=== PATIENT | female | born 1995 | race American Indian/Alaskan Native ===

== ENCOUNTER 2021-05-09 05:46 | Emergency (ER) | payer BC ==
--- NOTE | 2021-05-09 09:48 | Emergency Department Report ---
ED Female HPI - General Chief complaint: Abdominal Pain Stated complaint: ABD PAIN/BLEEDING Time Seen by Provider: 05/09/21 09:06 Source: patient Mode of arrival: Ambulatory Limitations: No Limitations - History of Present Illness Initial comments: 26-year-old female with no significant past history presents to the ER today with complaints of abnormal vaginal bleeding and low abdominal pain. Patient states that she started with a sharp intermittent low abdominal pain 5 days ago. Then 4 days ago she started with vaginal spotting. She states that the spotting increased on Thursday and it turned into heavier bleeding on Thursday. She states that she did have to change up to 3 pads on Thursday. She states that the bleeding has since slowed down since yesterday including today. She also reports that her abdominal pain has improved since it started. Patient states that she has PCOS and therefore has not had a menstrual cycle since 2018. She is not currently on any control. She states that she did not take a home test. She reports no other symptoms at this time. MD Complaint: vaginal bleeding -: days(s) (5) - Related Data Previous Rx's Medication Instructions Recorded Last Taken Type Sulfamethoxazole/Trimethoprim 1 each PO BID #10 tablet 05/09/21 Unknown Rx [Bactrim DS TAB] Allergies Allergy/AdvReac Type Severity Reaction Status Date / Time No Known Allergies Allergy Unverified 05/09/21 07:44 ED Review of Systems ROS: Stated complaint: ABD PAIN/BLEEDING Other details as noted in HPI Comment: All other systems reviewed and negative Constitutional: denies: chills, diaphoresis, fever, malaise, weakness Eyes: denies: eye pain, eye discharge, vision change ENT: denies: ear pain, throat pain, dental pain, hearing loss, epistaxis, congestion Respiratory: denies: cough, shortness of breath, SOB with exertion, SOB at rest, wheezing Cardiovascular: denies: chest pain, palpitations, dyspnea on exertion, edema, syncope, paroxysmal nocturnal dyspnea Endocrine: no symptoms reported Gastrointestinal: abdominal pain. denies: nausea, vomiting, diarrhea, constipation, hematemesis, melena, hematochezia Genitourinary: abnormal menses. denies: urgency, dysuria, frequency, hematuria, discharge Musculoskeletal: denies: back pain, joint swelling, arthralgia Skin: denies: rash, lesions, change in color, change in hair/nails, pruritus Neurological: denies: headache, weakness, numbness, paresthesias, confusion, abnormal gait, vertigo Psychiatric: denies: anxiety, depression, auditory hallucinations, visual hallucinations, homicidal thoughts, suicidal thoughts Hematological/Lymphatic: denies: easy bleeding, easy bruising, swollen glands ED Past Medical Hx - Past Medical History Previous Medical History?: Yes Additional medical history: PCOS - Surgical History Past Surgical History?: No - Medications Home Medications: Home Medications Medication Instructions Recorded Confirmed Last Taken Type Sulfamethoxazole/Trimethoprim 1 each PO BID #10 tablet 05/09/21 Unknown Rx [Bactrim DS TAB] ED Physical Exam - General Limitations: No Limitations General appearance: alert, in no apparent distress - Head Head exam: Present: atraumatic, normocephalic, normal inspection - Eye Eye exam: Present: normal appearance, PERRL, EOMI Pupils: Present: normal accommodation - ENT ENT exam: Present: normal exam, mucous membranes moist - Neck Neck exam: Present: normal inspection, full ROM - Respiratory Respiratory exam: Present: normal lung sounds bilaterally. Absent: respiratory distress - Cardiovascular Cardiovascular Exam: Present: regular rate, normal rhythm, normal heart sounds - GI/Abdominal GI/Abdominal exam: Present: soft. Absent: distended, tenderness, guarding - Neurological Exam Neurological exam: Present: alert, oriented X3, CN II-XII intact, normal gait - Psychiatric Psychiatric exam: Present: normal affect, normal mood - Skin Skin exam: Present: intact ED Course Vital Signs 05/09/21 05/09/21 07:46 10:03 Temperature 98.8 F 98.4 F Pulse Rate 77 67 Respiratory 16 15 Rate Blood Pressure 156/98 125/80 O2 Sat by Pulse 100 100 Oximetry ED Medical Decision Making - Medical Decision Making 26-year-old female with no significant past history presents to the ER today with complaints of abnormal vaginal bleeding and low abdominal pain. Patient states that she started with a sharp intermittent low abdominal pain 5 days ago. Then 4 days ago she started with vaginal spotting. She states that the spotting increased on Thursday and it turned into heavier bleeding on Thursday. She states that she did have to change up to 3 pads on Thursday. She states that the bleeding has since slowed down since yesterday including today. She also reports that her abdominal pain has improved since it started. Patient states that she has PCOS and therefore has not had a menstrual cycle since 2019. She is not currently on any control. She states that she did not take a home test. She reports no other symptoms at this time. Urinalysis is concerning for possible UTI. Culture is pending. hCG negative. Patient is nontoxic, not ill-appearing and currently not in any acute distress. She has been observed sitting up on the side of the bed and engaging in her phone. She has a nonsurgical abdominal exam. Her vital signs are stable. At this time there is no indication for any additional work-up, specialist consult or admission. Discussed lab results with patient. Discussed treatment plan for her UTI. Recommend that she follows up closely with her [employer]. Patient expressed understanding of instructions and agree with plan. Patient was stable at time of discharge. Critical care attestation.: If time is entered above; I have spent that time in minutes in the direct care of this critically ill patient, excluding procedure time. ED Disposition Clinical Impression: Abnormal uterine bleeding, UTI (urinary tract infection) Disposition: TO HOME OR SELFCARE Is pt being admited?: No Does the pt Need Aspirin: No Condition: Stable Instructions: Urinary Tract Infection, Adult, [id number], Abnormal Uterine Bleeding, [id number], Abdominal Pain (ED) Additional Instructions: Take the antibiotics as prescribed. You can take motrin or tylenol as needed for pain. I recommend she follow-up with your [employer] next week. Return to the ER if your symptoms changes or worsens in any way. Prescriptions: Sulfamethoxazole/Trimethoprim [Bactrim DS TAB] 1 each PO BID #10 tablet Referrals: PRIMARY CARE [Primary Care Provider] - 3-5 Days Time of Disposition: 11:09
[2021-05-09 10:10] VITALS: BP 125/80
[2021-05-09 10:34] LABS: Bilirubin,Urine NEG (Negative); Blood,Urine LG (Negative); Calcium Oxalate Crystals,Urine FEW; Color,Urine Amber (Yellow); Mucus,Urine 3+ /HPF
[2021-05-09 10:35] LABS: HCG Qualitative,Urine Negative (Negative)
== END 2021-05-09 11:16 | disposition home or self-care (01) ==
LOC: ED 05:46
DX: N93.9 Abnormal uterine and vaginal bleeding, unspecified (principal); N39.0 Urinary tract infection, site not specified; Z79.899 Other long term (current) drug therapy
CPT/HCPCS: 81001; 81025; 87086; 99283

== ENCOUNTER 2021-11-22 10:07 | Emergency (ER) | payer BC ==
[2021-11-22] MEDS ORDERED: ACETAMINOPHEN 500 MG TAB PO ONE (10:32)
[2021-11-22] MEDS ORDERED: ONDANSETRON 4 MG ODT TAB PO ONE (10:32)
--- NOTE | 2021-11-22 10:35 | Emergency Department Report ---
ED Abdominal Pain HPI - General Stated Complaint: ABD PAIN PUI?: Yes Time Seen by Provider: 11/22/21 10:28 Source: patient Mode of arrival: Ambulatory Limitations: No Limitations - History of Present Illness Initial Comments: 26-year-old female who denies any significant past medical history presents to the ER today with complaints of left flank pain. She states that the pain started abruptly this morning. She states that it radiates into her left lower quadrant area. She states that its been constant in nature. She states that currently her pain is 8 out of 10. She states that she did vomit once this morning. She denies any diarrhea. Last bowel movement was this morning and normal. She denies any UTI symptoms or any abnormal vaginal symptoms. Last menstrual cycle was about 2 weeks ago and normal. She is not currently on any control. She denies any known ill contacts, bad food intake or recent travel. She denies any history of abdominal surgeries. MD Complaint: abdominal pain, flank pain -: Sudden, This morning Location: LLQ, L flank Radiation: LLQ - Related Data LMP (females 10-50): other (about 2 weeks ago) Previous Rx's Medication Instructions Recorded Last Taken Type Sulfamethoxazole/Trimethoprim 1 each PO BID #10 tablet 05/09/21 Unknown Rx [Bactrim DS TAB] Ketorolac [Toradol] 10 mg PO Q6H PRN #20 11/22/21 Unknown Rx Ondansetron [Zofran Odt] 4 mg PO Q8HR #15 tab.rapdis 11/22/21 Unknown Rx Allergies Allergy/AdvReac Type Severity Reaction Status Date / Time No Known Allergies Allergy Unverified 05/09/21 07:44 ED Review of Systems ROS: Stated complaint: ABD PAIN Other details as noted in HPI Comment: All other systems reviewed and negative Constitutional: denies: chills, fever Eyes: denies: eye pain, eye discharge, vision change ENT: denies: ear pain, throat pain Respiratory: denies: cough, shortness of breath, SOB with exertion, SOB at rest, wheezing Cardiovascular: denies: chest pain, palpitations, dyspnea on exertion, edema, syncope, paroxysmal nocturnal dyspnea Gastrointestinal: abdominal pain, nausea, vomiting. denies: diarrhea, constipation, hematemesis, hematochezia Genitourinary: denies: urgency, dysuria, frequency, hematuria, discharge, abnormal menses, dyspareunia Musculoskeletal: denies: back pain, joint swelling, arthralgia, myalgia Skin: denies: rash, lesions, change in color, change in hair/nails, pruritus Neurological: denies: headache, weakness, numbness, paresthesias, confusion, abnormal gait, vertigo Psychiatric: as per HPI. denies: auditory hallucinations, visual hallucinations, homicidal thoughts, suicidal thoughts Hematological/Lymphatic: denies: easy bleeding, easy bruising ED Past Medical Hx - Past Medical History Additional medical history: PCOS - Medications Home Medications: Home Medications Medication Instructions Recorded Confirmed Last Taken Type Sulfamethoxazole/Trimethoprim 1 each PO BID #10 tablet 05/09/21 Unknown Rx [Bactrim DS TAB] Ketorolac [Toradol] 10 mg PO Q6H PRN #20 11/22/21 Unknown Rx Ondansetron [Zofran Odt] 4 mg PO Q8HR #15 tab.rapdis 11/22/21 Unknown Rx ED Course Vital Signs 11/22/21 10:34 Temperature 98.3 F Pulse Rate 74 Respiratory 18 Rate Blood Pressure 148/83 O2 Sat by Pulse 94 Oximetry ED Medical Decision Making - Lab Data Result diagrams: 11/22/21 10:52 11/22/21 10:52 - Radiology Data Patient: CAROL BENEDICT MR#: [id number] : 1995 Acct:[id number] Age/Sex: 26 / F ADM Date: 11/22/21 Loc: ED Attending Dr: Ordering Physician: JORDAN THEODORE Date of Service: 11/22/21 Procedure(s): CT abdomen pelvis wo con Accession Number(s): [id number] cc: JORDAN THEODORE CT ABDOMEN AND PELVIS WITHOUT CONTRAST INDICATION / CLINICAL INFORMATION: Right flank pain. TECHNIQUE: Axial CT images were obtained through the abdomen and pelvis without IV contrast. Sagittal and coronal reformatted images. All CT scans at this location are performed using CT dose reduction for ALARA by means of automated exposure control. COMPARISON: None available. FINDINGS: LOWER CHEST: No significant abnormality. LIVER: No significant abnormality. GALLBLADDER: No significant abnormality. BILE DUCTS: No significant abnormality. PANCREAS: No significant abnormality. SPLEEN: No significant abnormality. ADRENALS: No significant abnormality. RIGHT KIDNEY and URETER: There are a few calyceal stones in the right kidney with the largest measuring 4 mm near the superior pole. No ureteral stones or hydronephrosis is appreciated LEFT KIDNEY and URETER: No significant abnormality. STOMACH and SMALL BOWEL: No significant abnormality. COLON: No significant abnormality. APPENDIX: No significant abnormality. PERITONEUM: No free fluid. No free air. No fluid collection. LYMPH NODES: No significant adenopathy. AORTA and ARTERIES: No significant abnormality. IVC and VEINS: No significant abnormality. URINARY BLADDER: No significant abnormality. REPRODUCTIVE ORGANS: No significant abnormality. ADDITIONAL FINDINGS: None. SKELETAL SYSTEM: No significant abnormality. IMPRESSION: Nonobstructing right nephrolithiasis as described. Signer Name: Santi Montelongo Jr, MD Signed: 11/22/2021 12:49 PM Workstation Name: [id number] Transcribed By: DES Dictated By: SANTI MONTELONGO JR, MD Electronically Authenticated By: SANTI MONTELONGO JR, MD Signed Date/Time: 11/22/21 1249 DD/ 1247 TD/TT: - Medical Decision Making 1259: CT abdomen pelvis shows nothing acute. Labs reviewed and unremarkable. hCG is negative. Patient currently resting comfortably on the recliner. She is not in any acute distress. She is not toxic or ill-appearing. Her vital signs are stable. She is neurologically intact. Discussed findings with patient. Exact cause of her symptoms at this time unclear, could be viral, but at this time there is no significant abnormalities noted on work-up today requiring surgical intervention or admission. Patient will be given medication to help her symptoms. Recommend close follow-up with her primary care doctor. Patient expressed understanding of all instructions and agree with plan. Patient was stable at time of discharge. Critical care attestation.: If time is entered above; I have spent that time in minutes in the direct care of this critically ill patient, excluding procedure time. ED Disposition Clinical Impression: Left sided abdominal pain, Left flank pain Disposition: HOME / SELF CARE / HOMELESS Is pt being admited?: No Does the pt Need Aspirin: No Condition: Stable Instructions: Abdominal Pain, Adult, [id number], Flank Pain, Adult Additional Instructions: Recommend that you take the Zofran as prescribed to help if your nausea and vomiting continues. Take the Toradol to help with pain as needed. Follow-up with your primary care doctor next week. Return to the ER if your symptoms worsens in any way. Prescriptions: Ketorolac [Toradol] 10 mg PO Q6H PRN #20 PRN Reason: Pain Ondansetron [Zofran Odt] 4 mg PO Q8HR #15 tab.rapdis Referrals: PRIMARY CARE, [Primary Care Provider] - 3-5 Days Forms: Work/School Release Form(ED) Time of Disposition: 13:01
[2021-11-22 11:12] LABS: Basophils % (Auto) 0.4 % (0.0-1.8); Eosinophils # (Auto) 0.1 K/mm3 (0.0-0.4); Hematocrit 40.5 % (30.3-42.9); Hemoglobin 13.1 gm/dl (10.1-14.3); Lymphocytes # (Auto) 1.5 K/mm3 (1.2-5.4); Lymphocytes % (Auto) 17.1 % (13.4-35.0); Mean Corpuscular HGB Conc 32 % (30-34); Mean Corpuscular Volume 86 fl (79-97); Monocytes # (Auto) 0.5 K/mm3 (0.0-0.8); Monocytes % (Auto) 5.8 % (0.0-7.3); Platelet Count 312 K/mm3 (140-440); Red Blood Count 4.71 M/mm3 (3.65-5.03); Red Cell Distribution Width 14.9 % (13.2-15.2)
[2021-11-22 11:34] LABS: Alanine Aminotransferase 17 units/L (7-56); Albumin 4.1 g/dL (3.9-5); BUN/Creatinine Ratio 8; Blood Urea Nitrogen 6 mg/dL (7-17); Calcium 9.5 mg/dL (8.4-10.2); Hemolysis Index 4
[2021-11-22 11:37] LABS: Bilirubin,Urine NEG (Negative); Blood,Urine LG (Negative); Color,Urine Yellow (Yellow); Mucus,Urine 2+ /HPF; Urobilinogen,Urine < 2.0 mg/dL (<2.0)
[2021-11-22 11:44] LABS: RBC,Urine > 182.0 /HPF (0.0-6.0)
--- NOTE | 2021-11-22 12:54 | Cat Scan Report ---
CT ABDOMEN AND PELVIS WITHOUT CONTRAST INDICATION / CLINICAL INFORMATION: Right flank pain. TECHNIQUE: Axial CT images were obtained through the abdomen and pelvis without IV contrast. Sagittal and stark l reformatted images. All CT scans at this location are performed using CT dose reduction for ALARA b y means of automated exposure control. COMPARISON: None available. FINDINGS: LOWER CHEST: No significant abnormality. LIVER: No significant abnormality. GALLBLADDER: No significant abnormality. BILE DUCTS: No significant abnormality. PANCREAS: No significant abnormality. SPLEEN: No significant abnormality. ADRENALS: No significant abnormality. RIGHT KIDNEY and URETER: There are a few calyceal stones in the right kidney with the largest measuri ng 4 mm near the superior pole. No ureteral stones or hydronephrosis is appreciated LEFT KIDNEY and URETER: No significant abnormality. STOMACH and SMALL BOWEL: No significant abnormality. COLON: No significant abnormality. APPENDIX: No significant abnormality. PERITONEUM: No free fluid. No free air. No fluid collection. LYMPH NODES: No significant adenopathy. AORTA and ARTERIES: No significant abnormality. IVC and VEINS: No significant abnormality. URINARY BLADDER: No significant abnormality. REPRODUCTIVE ORGANS: No significant abnormality. ADDITIONAL FINDINGS: None. SKELETAL SYSTEM: No significant abnormality. IMPRESSION: Nonobstructing right nephrolithiasis as described. Signer Name: Santi White Jr, MD Signed: 11/22/2021 12:49 PM Workstation Name: [id number]
[2021-11-22 13:20] VITALS: BP 114/66
== END 2021-11-22 13:20 | disposition home or self-care (01) ==
LOC: ED 10:07
DX: R10.32 Left lower quadrant pain (principal); R10.9 Unspecified abdominal pain
CPT/HCPCS: 36415; 74176; 80053; 81001; 83690; 84703; 85025; 87086; 99284; J3490; Q0162